=== PATIENT | male | born 1990 | race Caucasian/White ===

== ENCOUNTER 2017-12-30 14:09 | Outpatient (CLI) | payer BC, SELFPAY ==
--- NOTE | 2017-12-30 14:28 | DI.REPORT_ITS ---
SYMPTOM/DIAGNOSIS: LOW BACK PAIN, M54.5 LUMBOSACRAL SPINE: There is partial lumbarization of S1. There is partial sacralization of L5, disc narrowing and end plate hypertrophic changes are identified at L5-S1, and there is a Grade 1 spondylolisthesis at L5-S1. The vertebral bodies and disc spaces appear otherwise unremarkable. The pedicles, spinous and transverse processes are normal. The sacrum and sacroiliac joints are intact.
== END 2017-12-30 14:10 ==
PROVIDERS: PCP Internal Medicine; Visit Provider Family Medicine
DX: M47.817 Spondylosis without myelopathy or radiculopathy, lumbosacral region (principal); M43.17 Spondylolisthesis, lumbosacral region
CPT/HCPCS: 72110

== ENCOUNTER 2018-04-06 03:24 | Emergency (ER) | payer OTHER, SELFPAY ==
[2018-04-06 03:26] VITALS: BP 158/65; PULSE 64; RESP 16; TEMP 36.6; O2SAT 98
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
--- NOTE | 2018-04-06 03:45 | DI.RAD_ITS ---
SYMPTOM/DIAGNOSIS: TRAUMA RIGHT HAND: Three views. No bone or joint abnormality is identified. IMPRESSION: Negative examination.
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
== END 2018-04-06 04:09 | disposition home or self-care (01) ==
LOC: ER 04:14
PROVIDERS: Emergency Provider Emergency Medicine; PCP Internal Medicine
DX: S60.211A Contusion of right wrist, initial encounter (principal); S60.221A Contusion of right hand, initial encounter; Y04.0XXA Assault by unarmed brawl or fight, initial encounter; Y99.0 Civilian activity done for income or pay
CPT/HCPCS: 99283; 73130

== ENCOUNTER 2019-07-27 19:51 | Emergency (ER) | payer OTHER, SELFPAY ==
[2019-07-27 19:54] VITALS: BP 147/63; PULSE 76; RESP 22; TEMP 36.5; O2SAT 97
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
[2019-07-27 20:32] VITALS: BP 147/63; PULSE 76; RESP 22; TEMP 36.5; O2SAT 97
[2019-07-27 22:34] LABS: ALT 27 U/L (16-63); AST 25 U/L (15-37); Albumin 4.5 g/dL (3.4-5.0); Alkaline Phosphatase 56 U/L (46-116); Bilirubin, Total 0.3 mg/dL (0.2-1.0); Total Protein 7.4 g/dL (6.4-8.2)
[2019-07-29 08:59] LABS: Hepatitis B Surface Ag Negative (Negative)
[2019-07-29 09:09] LABS: HBs Antibody, Quant 12.8 mIU/mL (See Note); Hepatitis B Surface Ab Positive (See Note)
[2019-07-29 09:51] LABS: HIV-1/2 Ag & Ab Screen Negative (Negative); Hepatitis C Ab w Rflx HCV PCR Negative (Negative)
== END 2019-07-27 20:30 | disposition home or self-care (01) ==
PROVIDERS: Emergency Provider Physician Assistant; PCP Internal Medicine
DX: Z77.21 Contact with and (suspected) exposure to potentially hazardous body fluids (principal); S60.410A Abrasion of right index finger, initial encounter; W22.09XA Striking against other stationary object, initial encounter; Y99.0 Civilian activity done for income or pay
CPT/HCPCS: 80076; 86706; 86803; 87340; 87389; 99281

== ENCOUNTER 2020-01-24 10:43 | Outpatient (CLI) | payer BC, SELFPAY ==
--- NOTE | 2020-01-24 10:15 | DI.RAD_ITS ---
EXAM: XR KNEE RT 3V AP,LAT,BETSY CLINICAL HISTORY: knee pain. TECHNIQUE: 2D digital imaging was performed. COMPARISON: No exams were available for comparison FINDINGS: BONES: No acute fracture is present. No bony destructive lesion is seen. JOINTS: The knee is normally aligned. No joint effusion is seen. SOFT TISSUE: Normal. 2 mm density in the soft tissues anterior to the patella. Please correlate clin ically. IMPRESSION: No acute abnormality. DATA REPOSITORY: RADIATION DOSE DELIVERED:
== END 2020-01-24 11:03 ==
PROVIDERS: PCP Internal Medicine; Referring Provider Internal Medicine; Visit Provider Student in an Organized Health Care Education/Training Program
DX: M25.561 Pain in right knee (principal)
CPT/HCPCS: 73562

== ENCOUNTER 2020-02-03 04:21 | Outpatient (CLI) | payer BC, SELFPAY ==
--- NOTE | 2020-02-03 12:00 | DI.MRI_ITS ---
EXAM: MR LOWER JOINT RT WO CLINICAL HISTORY: right knee pain,M22.41,M76.51,PATELLAR TENDONITIS,CHONDROMALACIA RT PATELLA. TECHNIQUE: Multiplanar multisequence MRI was performed. COMPARISON: MR MRI R LOWER JOINT WO CONT from 03/07/2014 CR XR KNEE RT 3V AP,LAT,BETSY from 01/24/2020 FINDINGS: There is edema in the medial aspect of the patellar tendon, at the lower pole of the patella. There is edema in the adjacent fat and edema in the lower pole of the patella. Remainder of the patellar tendon appears normal distally. The patella appears normally positioned. There is small amount of n onspecific edema in subcutaneous fat anterior to the patella. There is a small joint effusion. Ther e is mild cartilage irregularity of the lateral patellar facet cartilage near the apex. The largest defect measures 1 millimeter. The cartilage overlying the femoral condyles and tibial plateaus appea r intact. The cruciate and collateral ligaments and extensor mechanism appear intact. IMPRESSION: Tendinitis of the medial aspect of the proximal patellar tendon. Mild chondromalacia of the lateral patellar facet. DATA REPOSITORY:
== END 2020-02-03 04:41 ==
PROVIDERS: PCP Family Medicine; Visit Provider Physician Assistant
DX: M76.51 Patellar tendinitis, right knee (principal); M22.41 Chondromalacia patellae, right knee
CPT/HCPCS: 73721

== ENCOUNTER 2020-06-02 02:26 | Emergency (ER) | payer OTHER, SELFPAY ==
[2020-06-02 02:31] VITALS: BP 154/80; PULSE 62; RESP 16; TEMP 36.3; O2SAT 97
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
--- NOTE | 2020-06-02 03:03 | DI.RAD_ITS ---
EXAM: XR THUMB LT CLINICAL HISTORY: trauma. TECHNIQUE: 2D digital imaging was performed. COMPARISON: None. FINDINGS: BONES: No acute fracture is present. No bony destructive lesion is seen. JOINTS: No dislocation present. SOFT TISSUE: Normal. IMPRESSION: No evidence of acute fracture, dislocation, or subluxation. DATA REPOSITORY: RADIATION DOSE DELIVERED:
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
== END 2020-06-02 03:20 | disposition home or self-care (01) ==
PROVIDERS: Emergency Provider Emergency Medicine; PCP Family Medicine
DX: S69.92XA Unspecified injury of left wrist, hand and finger(s), initial encounter (principal); W45.8XXA Other foreign body or object entering through skin, initial encounter; M65.841 Other synovitis and tenosynovitis, right hand
CPT/HCPCS: 29125; 99283; 73140

== ENCOUNTER 2021-07-18 18:11 | Emergency (ER) | payer OTHER, SELFPAY ==
[2021-07-18 18:15] VITALS: BP 169/85; PULSE 67; RESP 16; TEMP 36.4; O2SAT 99
--- NOTE | 2021-07-18 18:30 | DI.CT_ITS ---
Exam(s) CT HEAD CERVICAL SPINE WO EXAM: CT HEAD CERVICAL SPINE WO CLINICAL HISTORY: trauma/head injury. TECHNIQUE: Imaging Protocol: Axial computed tomography images with coronal and sagittal reformatted images were created and reviewed COMPARISON: No exams were available for comparison FINDINGS: BRAIN: There are no skull fractures nor fluid in the visualized paranasal sinuses. There is no evidence of intracranial hemorrhage, mass effect, or shift of midline structures. There are no extra-axial fluid collections. The ventricles are not enlarged or shifted and there is no blo od within the ventricular system nor within the basal cisterns. CERVICAL SPINE: There is no evidence of fracture nor listhesis. No significant prevertebral soft tissue swelling. There is no significant facet joint malalignment. No significant osseous lesions evident. IMPRESSION: No acute intracranial findings on this noninfused CT scan of the brain. No evidence of cervical spine fracture, malalignment, nor acute compromise of the cervical spinal can al. RADIATION DOSE DELIVERED: 1,552.07mGy.cm Total DLP DATA REPOSITORY: All CT scans at this facility are submitted to the National Radiology Data Registry (NRDR) Dose Index Registry (DIR) with the [employer] (ACR). RADIATION OPTIMIZATION: All CT scans at this facility use at least one of these dose optimization te chniques: automated exposure control; mA and/or kV adjustment per patient size (includes targeted exa ms where dose is matched to clinical indication); or iterative reconstruction.
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
--- NOTE | 2021-07-18 19:21 | DI.VRAD_ITS ---
PROCEDURE INFORMATION: Exam: CT Head Without Contrast Exam date and time: 07/18/2021 6:33 PM Age: 30 years old Clinical indication: Other: Trauma, head injury; Other: Trauma, head and neck injury, bruising on forehead TECHNIQUE: Imaging protocol: Computed tomography of the head without contrast. Radiation optimization: All CT scans at this facility use at least one of these dose optimization techniques: automated exposure control; mA and/or kV adjustment per patient size (includes targeted exams where dose is matched to clinical indication); or iterative reconstruction. COMPARISON: CT WHOLE BODY BONE SCAN 10/19/2014 10:02 AM FINDINGS: Brain: No acute intracranial hemorrhage, mass-effect, midline shift, or extra-axial collection is seen. The garcia white matter differentiation appears preserved. Cerebral ventricles: The ventricular system and basilar cisterns appear appropriate in size and configuration. Paranasal sinuses: The visualized paranasal sinuses appear well aerated. No air-fluid levels are seen. Mastoid air cells: The mastoid air cells appear well-aerated. Auditory system: The middle ear cavities appear clear. Orbital cavity: The globes and intraorbital structures appear grossly intact. Bones/joints: The bony calvarium appears intact. No depressed skull fracture is seen. Soft tissues: There appears to be mild soft tissue contusion along the superior and superolateral margin of the left orbit. No gross focal scalp hematoma is seen. There are scattered subcentimeter subcutaneous scalp nodules, not well characterized by the current exam but most likely trichilemmal cysts IMPRESSION: No acute intracranial hemorrhage or depressed skull fracture. PROCEDURE INFORMATION: Exam: CT Cervical Spine Without Contrast Exam date and time: 07/18/2021 6:33 PM Age: 30 years old Clinical indication: Other: Trauma, head injury; Other: Trauma, head and neck injury, bruising on forehead TECHNIQUE: Imaging protocol: Computed tomography images of the cervical spine without contrast. Radiation optimization: All CT scans at this facility use at least one of these dose optimization techniques: automated exposure control; mA and/or kV adjustment per patient size (includes targeted exams where dose is matched to clinical indication); or iterative reconstruction. COMPARISON: NM WHOLE BODY BONE SCAN 10/19/2014 10:02 AM FINDINGS: Bones/joints: No acute cervical fracture or malalignment is seen. There is straightening of the normal cervical lordosis. This can be seen in the presence of a cervical collar or may result from muscle spasm or positioning. Discs/Spinal canal/Neural foramina: No significant cervical stenosis is demonstrated. There is mild foraminal narrowing at several levels. Thyroid: The thyroid gland appears normal. Lungs: The lung apices appear clear. Soft tissues: Within the limits of the exam, no gross soft tissue fluid collection is seen in the neck. IMPRESSION: No acute cervical fracture or malalignment is seen. Dictated and Authenticated by: Juventino Nathan MD. Ordering:ISRAEL Rodriguez MD
[2021-07-18 19:42] VITALS: BP 132/64; PULSE 78; RESP 18; TEMP 36.6; O2SAT 98
== END 2021-07-18 21:34 | disposition home or self-care (01) ==
PROVIDERS: Emergency Provider Nurse Practitioner Family; PCP Family Medicine
DX: S09.8XXA Other specified injuries of head, initial encounter (principal); V49.9XXA Car occupant (driver) (passenger) injured in unspecified traffic accident, initial encounter; Y99.0 Civilian activity done for income or pay
CPT/HCPCS: 99284; 70450; 72125; 99283

== ENCOUNTER 2021-11-11 14:40 | Outpatient (REF) | payer BC, SELFPAY ==
[2021-11-12 10:51] LABS: Lyme Ab w Rflx to Lyme Confirm Negative (Negative)
[2021-11-13 21:07] LABS: Anaplasma phagocytophilum Negative (Negative); B. miyamotoi PCR Negative (Negative); Babesia divergens/MO-1 Negative (Negative); Babesia duncani Negative (Negative); Babesia microti Negative (Negative); Ehrlichia chaffeensis Negative (Negative); Ehrlichia ewingii/canis Negative (Negative); Ehrlichia muris eauclairensis Negative (Negative)
== END 2021-11-11 14:41 | disposition home or self-care (01) ==
LOC: NCHCN 14:40
PROVIDERS: PCP Family Medicine; Visit Provider Family Medicine
DX: W57.XXXA Bitten or stung by nonvenomous insect and other nonvenomous arthropods, initial encounter (principal); T14.8XXA Other injury of unspecified body region, initial encounter
CPT/HCPCS: 87798; 86618

== ENCOUNTER 2022-01-31 00:40 | Outpatient (CLI) | payer OTHER, BC, SELFPAY ==
--- NOTE | 2022-01-31 | DI.RAD_ITS ---
Exam(s) XR CERVICAL SPINE COMP 4-5V EXAM: XR CERVICAL SPINE COMP 4-5V CLINICAL HISTORY: NECK PAIN, M54.2. TECHNIQUE: 2D digital imaging was performed. Five images were obtained. AP, odontoid, lateral and bi lateral oblique images were obtained. COMPARISON: No exams were available for comparison FINDINGS: The odontoid is intact. The lateral masses are well aligned. There is normal alignment of the cervi konstantin spine. The vertebral bodies, disc spaces and posterior elements are well maintained. No acute f racture or subluxation is present. No significant neural foraminal stenosis is present. The cervical thoracic junction is well maintained. The prevertebral soft tissues are unremarkable. Lung apices a re clear. IMPRESSION: Unremarkable radiographs of the cervical spine. DATA REPOSITORY: RADIATION DOSE DELIVERED:
== END 2022-01-31 01:00 ==
PROVIDERS: PCP Family Medicine; Visit Provider Family Medicine
DX: M54.2 Cervicalgia (principal)
CPT/HCPCS: 72050

== ENCOUNTER 2022-02-12 01:49 | Outpatient (CLI) | payer OTHER, SELFPAY ==
--- NOTE | 2022-02-12 | DI.MRI_ITS ---
Exam(s) MR CERVICAL SPINE WO EXAM: MR CERVICAL SPINE WO CLINICAL HISTORY: NECK PAIN M54.2 TECHNIQUE: Multiplanar multisequence MRI of the cervical spine was performed without intravenous con trast. COMPARISON: CR XR CERVICAL SPINE COMP 4-5V from 01/31/2022 FINDINGS: CERVICOMEDULLARY JUNCTION: Intact with no evidence of cerebellar tonsillar ectopia. No obvious abnor mality of the odontoid process. No evidence of Chiari 1 malformation. CERVICAL SPINAL CORD: There is no abnormal signal in the cervical spinal cord and no evidence of foca l cord atrophy nor focal cord swelling. OSSEOUS:There are no cervical fractures evident. No significant osseous lesions in the cervical vert ebrae. INDIVIDUAL LEVELS: C2-3: No disc herniation nor central canal stenosis. No foraminal stenosis. No facet arthropathy. C3-4: No disc herniation nor central canal stenosis.Mild bilateral facet arthropathy. No foraminal s tenosis. C4-5: No disc herniation nor central canal stenosis.No facet arthropathy. No foraminal stenosis C5-6: Normal disc height and signal. No disc herniation or canal stenosis. No foraminal stenosis. . No facet arthropathy. C6-7: Normal disc height and signal. There is a small central subligamentous disc protrusion. This slightly indents the anterior thecal sac but not the spinal cord. There is no abnormal signal in th e spinal cord at this level. No significant facet arthropathy. No foraminal stenosis at this level. C7-T1: No disc herniation nor central canal stenosis. No facet arthropathy.No foraminal stenosis. IMPRESSION: 1. Main finding here is a small central subligamentous disc protrusion at C6-7 level. This slightly indents the anterior thecal sac but not the spinal cord and there is no significant central spinal ca nal stenosis at this level. There is also no evidence of abnormal signal in the cord. No evidence o f focal cord swelling nor focal cord atrophy. 2. No central spinal canal stenosis in the cervical spine. Also no significant foraminal stenosis. 3. Minimal facet joint degenerative changes. DATA REPOSITORY:
--- NOTE | 2022-02-12 | DI.MRI_ITS ---
Exam(s) MR BRAIN WO EXAM: MR BRAIN WO CLINICAL HISTORY: HX HEAD INJURY Z87.828 TECHNIQUE: Multiplanar multisequence MRI of the brain was performed. COMPARISON: No exams were available for comparison FINDINGS: CEREBRAL PARENCHYMA: There is no evidence of intracranial hemorrhage, mass effect, or shift of midline structures. There are no extra-axial fluid collections. Ventricles are not enlarged or shifted. There is no significant focal signal abnormality in the cerebellar hemispheres nor within the gianna, m idbrain, and thalami. There is no abnormal signal abnormality in the periventricular white matter. There is no significant focal signal abnormality evident on diffusion imaging to suggest acute ischem ic event. PITUITARY GLAND: No mass nor parasellar abnormality. No obvious abnormality in the cavernous sinuses. FLOW VOIDS: The expected flow void are noted. No evidence of obvious aneurysm nor obvious vascular ma lformation. The vertebral arteries are noted to be quite thin as is the basilar artery. This is prob ably on a developmental basis as there appear to be posterior communicating arteries on both sides of the [id number]-persistent circulation. PARANASAL SINUSES: The visualized paranasal sinuses appear unremarkable. No obvious finding ORBITS: No obvious findings. IMPRESSION: No significant intracranial findings on this noninfused MRI scan of the brain. DATA REPOSITORY:
== END 2022-02-12 02:09 ==
PROVIDERS: PCP Family Medicine; Visit Provider Family Medicine
DX: M54.2 Cervicalgia (principal); M50.223 Other cervical disc displacement at C6-C7 level; M47.812 Spondylosis without myelopathy or radiculopathy, cervical region; Z87.828 Personal history of other (healed) physical injury and trauma; S09.8XXD Other specified injuries of head, subsequent encounter
CPT/HCPCS: 70551; 72141

== ENCOUNTER 2023-08-26 10:30 | Outpatient (REF) | payer BC, SELFPAY ==
[2023-08-26 15:19] LABS: ALT 35 U/L (16-63); AST 16 U/L (15-37); Albumin 4.2 g/dL (3.4-5.0); Alkaline Phosphatase 75 U/L (46-116); Anion Gap 10.4 mmol/L (3-11); BUN 23 mg/dL (7-18); Bilirubin, Total 0.4 mg/dL (0.2-1.0); CO2 29.6 mmol/L (21.0-32.0); Calcium 9.7 mg/dL (8.5-10.1); Chloride 105 mmol/L (98-107); Estimated GFR 101.28 (mL/min/1.73m2); Glucose 92 mg/dL (74-106); Potassium 5.4 mmol/L (3.5-5.1); Sodium 145 mmol/L (136-145); TSH 2.57 uIU/Ml (0.36-3.74); Total Protein 7.4 g/dL (6.4-8.2)
[2023-08-26 16:30] LABS: Abs Immature Grans 0.01 10^3/uL (0.0-0.06); Absolute Basophil Count 0.05 10^3/uL (0.0-0.2); Absolute Lymphocyte Count 1.87 10^3/uL (1.2-3.4); Absolute Monocyte Count 0.59 10^3/uL (0.1-0.8); Absolute Neutrophil Count 3.24 10^3/uL (1.2-6.7); Basophils % 0.9; Eosinophils % 1.7; HCT 47.5 % (40.0-50.0); HGB 15.5 g/dL (13.5-17.5); Immature Grans % 0.2; Lymphocytes % 31.9; MCH 29.3 pg (27.0-33.0); MCHC 32.6 % (32.0-36.0); MCV 90 fL (80-95); MPV 10.4 fL (8.0-11.0); Monocytes % 10.1; Neutrophils % 55.2; Platelet Count 292 10^3/uL (130-400); RBC 5.29 10^6/uL (4.36-5.78); RDW-SD 42.8 fL; WBC 5.86 10^3/uL (4.4-10.8)
[2023-09-03 09:44] LABS: Testosterone, Free 14.2 ng/dL (4.85-19.0); Testosterone, Total 386 ng/dL (240-950)
== END 2023-08-26 10:31 | disposition home or self-care (01) ==
LOC: NCHCN 10:30
PROVIDERS: PCP Family Medicine; Visit Provider Family Medicine
DX: R53.83 Other fatigue (principal)
CPT/HCPCS: 80053; 84402; 84403; 84443; 85025

== ENCOUNTER 2024-09-12 18:45 | Outpatient (REF) | payer BC, SELFPAY ==
[2024-09-12 15:18] LABS: Calculated LDL 133 mg/dL (<100); Cholesterol 217 mg/dL (<200); HDL Cholesterol 53 mg/dL (>or=40); Triglyceride 158 mg/dL (<150)
== END 2024-09-12 18:46 | disposition home or self-care (01) ==
LOC: NCHCN 18:45
PROVIDERS: PCP Family Medicine; Visit Provider Family Medicine
DX: E66.9 Obesity, unspecified (principal)
CPT/HCPCS: 80061